=== PATIENT | male | born 1955 | race African-American/Black ===

== ENCOUNTER 2021-04-09 16:11 | Inpatient (IN) | payer MEDICAID ==
[~2021-04-09] VITALS: Ht 188 cm; Wt 77.0 kg
[~2021-04-09 16:11] MED LIST: AMLO10TA80 PO; CIMETIDINE PO; FOLI-43 PO; HYDR-519 PO; HYDR1TAB4 PO; LEVO500T2 PO; MOTRIN PO; MULT-1146 PO; PROCHLORPER PO; THIA100T13 PO
[2021-04-09 18:01] LABS: BASOPHILS % 0.1 % (0.0-2.0); LYMPHOCYTES % 7.9 % (20.0-50.0); MEAN CORPUSCULAR HEMOGLOBIN 23.1 pg (28.0-32.0); MEAN CORPUSCULAR VOLUME 72.7 fL (80.0-94.0); MONOCYTES % 14.7 % (2.0-8.0); NEUTROPHILS % 77.3 % (40.0-76.0); RED BLOOD CELL COUNT 6.05 mill/uL (4.7-6.1); RED CELL DISTRIBUTION WIDTH 19.3 % (11.6-14.6)
[2021-04-09 18:06] LABS: CHLORIDE 96 mEq/L (98-107)
[2021-04-09 18:18] LABS: MEAN PLATELET VOLUME 9.3 fl (7.4-10.4); PLATELET 79 x1000/uL (130-400)
[2021-04-10] MEDS ORDERED: ONDANSETRON HCL 4MG/2ML INJ IV STA (00:14)
[2021-04-10] MEDS ORDERED: MORPHINE SULFATE 4 MG/ML CPJ (NOT FOR IM USE) IV STA (00:14)
[2021-04-10] MEDS ORDERED: SODIUM CHLORIDE 0.9% 1,000 ML IV ONE (00:15)
[2021-04-10] MEDS ORDERED: KETOROLAC 30MG/ML VIAL IV ONE (00:15)
[2021-04-10] MEDS ORDERED: MORPHINE SULFATE 2 MG/ML CPJ (NOT FOR IM USE) IV PRN (11:15)
[2021-04-10] MEDS ORDERED: ONDANSETRON HCL 4MG/2ML INJ IV PRN (11:15)
[2021-04-10] MEDS ORDERED: KETOROLAC 15MG/ML VIAL IV PRN (11:15)
[2021-04-10] MEDS ORDERED: NALOXONE HCL 0.4MG/ML VIAL IV PRN (11:30)
[2021-04-10] MEDS: PANTOPRAZOLE 40MG DR TABLET PO SCH (12:00)
[2021-04-10] MEDS: DEXT 5%/0.45% NACL 1000ML 1,000 ML IV SCH ×2 (12:11→19:56)
[2021-04-11 00:28] VITALS: BP 128/79
[2021-04-11 04:00] VITALS: BP 110/64
[2021-04-11] MEDS: PANTOPRAZOLE 40MG DR TABLET PO SCH (07:54)
[2021-04-11 08:00] VITALS: BP 102/73
[2021-04-11] MEDS: DEXT 5%/0.45% NACL 1000ML 1,000 ML IV SCH (09:39)
[2021-04-11 12:00] VITALS: BP 127/68
[2021-04-11 15:58] LABS: *AMPHETAMINES SCREEN URINE NEGATIVE (NEGATIVE); *BARBITURATES SCREEN URINE NEGATIVE (NEGATIVE); *BENZODIAZEPINES SCREEN URINE NEGATIVE (NEGATIVE); *COCAINE SCREEN URINE NEGATIVE (NEGATIVE)
[2021-04-11 15:59] LABS: CANNABINOID URINE SCREEN NEGATIVE (NEGATIVE); METHADONE URINE SCREEN NEGATIVE (NEGATIVE); OPIATES URINE SCREEN NEGATIVE (NEGATIVE); PHENCYCLIDINE URINE SCREEN NEGATIVE (NEGATIVE)
[2021-04-11 16:00] VITALS: BP 140/73
[2021-04-11 16:01] VITALS: BP 140/76
== END 2021-04-11 17:41 | disposition home or self-care (01) | DRG 282 ==
LOC: ER 16:11 → 7WST 04-10 01:28 → EDBEDREQSVC 04-10 09:52 → ENRESERV 04-10 22:41
PROVIDERS: ADMIT Internal Medicine; ATTEND Internal Medicine
DX: K85.90 Acute pancreatitis without necrosis or infection, unspecified (principal); N17.0 Acute kidney failure with tubular necrosis; U07.1 COVID-19; E87.8 Other disorders of electrolyte and fluid balance, not elsewhere classified; E87.1 Hypo-osmolality and hyponatremia; D50.9 Iron deficiency anemia, unspecified; E78.00 Pure hypercholesterolemia, unspecified; E80.6 Other disorders of bilirubin metabolism; K76.0 Fatty (change of) liver, not elsewhere classified; E78.5 Hyperlipidemia, unspecified; E86.0 Dehydration; I10 Essential (primary) hypertension; J45.909 Unspecified asthma, uncomplicated; Z86.12 Personal history of poliomyelitis; Z88.0 Allergy status to penicillin; Z79.2 Long term (current) use of antibiotics; Z79.899 Other long term (current) drug therapy
CPT/HCPCS: 36415; 71045; 74176; 76700; 80053; 80305; 85025; 93005; 96361; 96365; 96375; 99285; J1885; J2405; J7030